=== PATIENT | female | born 1985 | race African-American/Black ===

== ENCOUNTER 2020-10-08 13:29 | Emergency (ER) | payer OTHER, SELFPAY ==
[2020-10-08 13:33] VITALS: BP 115/67; PULSE 123; RESP 16; TEMP 36.9; O2SAT 100
[2020-10-08 13:37] VITALS: BP 103/66; PULSE 81; RESP 16; TEMP 36.4; O2SAT 100
--- NOTE | 2020-10-08 14:51 | ED.EAR ---
HPI - Ear Problem General Chief complaint: Ear Stated complaint: ear pain/facial swelling Time Seen by Provider: 10/08/20 13:45 Source: patient Mode of arrival: ambulatory Limitations: no limitations History of Present Illness HPI Narrative: Patient is a 34-year-old female who presents complaining of left ear pain. Patient reports left ear pain x2 to 3 weeks, increasing over the past week. She reports using [id number] decongestant allergy medications without relief. She reports increasing pain over the past 2 days and radiating into her right jaw. She denies fever, cough, congestion, sore throat. She denies all other complaints. Patient denies significant medical history and does not take daily medications. MD Complaint: ear pain Related Data Allergies Allergy/AdvReac Type Severity Reaction Status Date / Time No Known Allergies Allergy Unverified 10/29/18 16:31 Review of Systems Review of Systems: Narrative: CONSTITUTIONAL: Denies fever, chills, or sweats. EYES: Denies visual changes, redness, or discharge. ENT: Denies rhinorrhea, congestion, sore throat, reports left otalgia CARDIOVASCULAR: Denies chest pain, palpitations, or edema. RESPIRATORY: Denies cough or dyspnea. GASTROINTESTINAL: Denies abdominal pain, nausea, vomiting, or diarrhea. GENITOURINARY: Denies dysuria or hematuria. SKIN: Denies rash or itching. MUSCULOSKELETAL: Denies back pain, joint pain, or myalgia. NEUROLOGIC: Denies headache, numbness, dizziness, or weakness. PSYCHIATRIC: Denies anxiety or depression. [facility] Social History Social History (Updated 10/08/20 @ 14:58 by MANISHA Keene) Smoking status: Never smoker Alcohol intake: never Substance use: never Living arrangements: with family Comments Past Exam Narrative: Exam Narrative: GENERAL: Well-appearing, well-nourished, and in no acute distress. HEAD: Normocephalic, atraumatic. EYES: EOMI. No redness or drainage. Conjunctiva are normal. ENT: Mucous membranes pink and moist. Nares clear. No rhinorrhea. Right TM normal, left TM cloudy, bulging, injected. Throat normal. Uvula midline. No periapical abscesses noted. NECK: AROM. Supple. Left cervical adenopathy. CHEST: No respiratory distress. HEART: Regular rate and rhythm. EXTREMITIES: Normal range of motion. SKIN: Warm, dry, no rash. NEURO: No focal deficits. Alert and oriented x3. Gait steady. PSYCH: Normal affect. No signs of depression or anxiety. Course Vital Signs Vital signs: Vital Signs Temperature 36.9 C 10/08/20 13:33 Pulse Rate 123 H 10/08/20 13:33 Respiratory Rate 16 10/08/20 13:33 Blood Pressure 115/67 10/08/20 13:33 Pulse Oximetry 100 10/08/20 13:33 Temperature 36.4 C 10/08/20 13:37 Pulse Rate 81 10/08/20 13:37 Respiratory Rate 16 10/08/20 13:37 Blood Pressure 103/66 10/08/20 13:37 Pulse Oximetry 100 10/08/20 13:37 Reviewed Medical Decision Making MDM Narrative Medical decision making narrative: Patient has left otitis media. Discussed antibiotic treatment as well as Tylenol and ibuprofen for pain. Patient agrees with plan of care. Patient is stable for discharge home with outpatient follow-up as discussed. Differential Diagnosis Differential Diagnosis: Otitis media, otitis externa, periapical abscess, foreign body, cerumen impaction Vital Signs Vital Signs: Vital Signs Temperature 36.9 C 10/08/20 13:33 Pulse Rate 123 H 10/08/20 13:33 Respiratory Rate 16 10/08/20 13:33 Blood Pressure 115/67 10/08/20 13:33 Pulse Oximetry 100 10/08/20 13:33 Temperature 36.4 C 10/08/20 13:37 Pulse Rate 81 10/08/20 13:37 Respiratory Rate 16 10/08/20 13:37 Blood Pressure 103/66 10/08/20 13:37 Pulse Oximetry 100 10/08/20 13:37 Reviewed Critical Care Time Critical Care Time Critical Care Time: No Discharge Plan Discharge Clinical Impression: Otitis media Patient Disposition: Home, Self-Care Condition: Stable
== END 2020-10-08 15:19 | disposition home or self-care (01) ==
PROVIDERS: Emergency Provider Nurse Practitioner; PCP Family Medicine
DX: H66.92 Otitis media, unspecified, left ear (principal)
CPT/HCPCS: 99283

== ENCOUNTER 2021-05-10 19:25 | Emergency (ER) | payer OTHER, SELFPAY ==
[2021-05-10 19:51] VITALS: BP 128/83; PULSE 88; RESP 16; TEMP 36.8; O2SAT 100
--- NOTE | 2021-05-10 21:17 | PC.NURSE ---
No answer from waiting room when called to be seen by EDP. 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
== END 2021-05-11 03:46 | disposition left against medical advice (07) ==
LOC: ANHED 22:16
DX: Z20.2 Contact with and (suspected) exposure to infections with a predominantly sexual mode of transmission (principal)
CPT/HCPCS: 99199